=== PATIENT | male | born 1965 | race Caucasian/White ===

== ENCOUNTER 2016-12-28 19:03 | Emergency (ER) | payer SELFPAY ==
[~2016-12-28] VITALS: Ht 172.7 cm; Wt 83.9 kg
--- NOTE | 2016-12-28 19:03 | NUR ---
Patient was BIBA and taken to bed 06 via gurney per EMS.
[2016-12-28 19:08] VITALS: BP 128/78
--- NOTE | 2016-12-28 19:20 | NUR ---
PT BIBA FOR EVALUATION OF LBP X 1 DAY. 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 PT DENIES ANY OTHER MEDICAL HX. DENIES N/V/D; SKIN IS PINK/WARM/DRY; AAOX4 LUNGS CLEAR BL; HR EVEN AND REGULAR; PT DENIES ANY FEVER, CP, SOB, OR COUGH AT THIS TIME; PATIENT STATES PAIN OF 10/10 AT THIS TIME; VSS; PATIENT POSITIONED FOR COMFORT; HOB ELEVATED; BEDRAILS UP X2; BED DOWN. ER MD MADE AWARE OF PT STATUS.
[2016-12-28] MEDS ORDERED: MORPHINE SULFATE 10 MG/ML SYR IM ONE ×2 (19:55→23:20)
--- NOTE | 2016-12-28 21:45 | NUR ---
PT RESTING IN BED. NO SOB NOTED. PT AT BEDSIDE
--- NOTE | 2016-12-28 23:17 | NUR ---
PT RESTING IN BED. NO SOB NOTED AT THIS TIME. PT DENIES ANY DISCOMFORT. AT BEDSIDE. Addendum: 12/28/16 at 2323 by ALFONZO PT STATES PAIN 02/25
--- NOTE | 2016-12-28 23:37 | NUR ---
Rita marte in [facility] - 12/28/16 at 2338 by QUYNH X-Ray at bedside.
--- NOTE | 2016-12-28 23:38 | NUR ---
PT TAKEN TO XRAY
--- NOTE | 2016-12-28 23:51 | NUR ---
PT BACK ON UNIT FROM X-RAY.
--- NOTE | 2016-12-29 00:18 | NUR ---
Patient discharged with v/s stable. Written and verbal after care instructions given and explained. Patient alert, oriented and verbalized understanding of instructions. Wheel Chair Assisted with to car. All questions addressed prior to discharge. ID band removed. Patient advised to follow up with PMD. Rx of NAPROSYN given. Patient educated on indication of medication including possible reaction and side effects. Opportunity to ask questions provided and answered. D/C BY DR AWAD.
[2016-12-29 00:22] VITALS: BP 112/75
== END 2016-12-29 00:18 | disposition home or self-care (01) ==
LOC: MED 19:03
DX: M54.5 Low back pain (principal)
CPT/HCPCS: 72110; 96372; 99284; J2270